=== PATIENT | female | born 2000 | race Caucasian/White ===

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

== ENCOUNTER 2022-06-16 11:47 | Emergency (ER) | payer BC, OTHER ==
[~2022-06-16] VITALS: Ht 157.5 cm; Wt 86.4 kg
[2022-06-16 12:27] LABS: BASO % 0.2 % (0.0-1.0); EOS # 0.1 10^3/uL (0.0-0.5); EOS % 0.4 % (0.0-3.0); HEMATOCRIT 49.1 % (36.0-47.0); HEMOGLOBIN 15.4 g/dl (12.0-15.5); LYMPH # 0.7 10^3/uL (1.5-5.0); LYMPH % 4.3 % (24.0-44.0); MEAN CORPUSCULAR HEMOGLOBIN 25.8 pg (27.0-33.0); MEAN CORPUSCULAR HGB CONC 31.4 g/dl (32.0-36.5); MEAN CORPUSCULAR VOLUME 82.1 fl (80.0-96.0); MONO # 0.8 10^3/uL (0.0-0.8); MONO % 4.5 % (2.0-8.0); NEUTROPHILS # 15.2 10^3/uL (1.5-8.5); NEUTROPHILS % 90.3 % (36.0-66.0); PLATELET COUNT, AUTOMATED 366 10^3/uL (150-450); RED BLOOD COUNT 5.98 10^6/uL (4.00-5.40); WHITE BLOOD COUNT 16.9 10^3/uL (4.0-10.0)
[2022-06-16 12:52] LABS: LIPASE 23 U/L (12-53)
[2022-06-16 12:54] LABS: ALBUMIN 4.2 G/DL (3.2-5.2); ALKALINE PHOSPHATASE 120 U/L (46-116); ALT/SGPT 20 U/L (7.0-40); AST/SGOT 20 U/L (<34); BILIRUBIN,DIRECT 0.3 MG/DL (<0.4); BILIRUBIN,TOTAL 0.8 MG/DL (0.3-1.2); BLOOD UREA NITROGEN 15 MG/DL (9-23); CALCIUM LEVEL 9.7 MG/DL (8.5-10.1); CARBON DIOXIDE LEVEL 30 MMOL/L (20-31); CHLORIDE LEVEL 104 MMOL/L (98-107); CREATININE FOR GFR 0.59 MG/DL (0.55-1.30); GLUCOSE, FASTING 114 MG/DL (60-100); POTASSIUM SERUM 4.3 MMOL/L (3.5-5.1); SODIUM LEVEL 141 MMOL/L (136-145); TOTAL PROTEIN 7.6 G/DL (5.7-8.2)
[2022-06-16 12:58] LABS: HCG, SERUM QUALITATIVE NEGATIVE (NEGATIVE)
[2022-06-16] MEDS ORDERED: ONDANSETRON 4MG 2ML VIAL IV ONE (13:20)
[2022-06-16] MEDS ORDERED: NS 1,000 ML IV ONE (13:20)
[2022-06-16] MEDS ORDERED: ISOVUE-370 76% 100ML VIAL As Ordered ONE (13:22)
[2022-06-16] MEDS ORDERED: PROM50TA4 PO (14:21)
[2022-06-16 14:42] VITALS: BP 133/68
== END 2022-06-16 14:59 | disposition home or self-care (01) ==
LOC: M ED 11:47
DX: R11.10 Vomiting, unspecified (principal); R19.7 Diarrhea, unspecified; R10.9 Unspecified abdominal pain
CPT/HCPCS: 74177; 80048; 80076; 81001; 83605; 83690; 84703; 85025; 87086; 96374; 99284; J2405

== ENCOUNTER 2024-12-26 10:52 | Emergency (ER) | payer BC, OTHER ==
[~2024-12-26] VITALS: Ht 157.5 cm; Wt 105.1 kg
[~2024-12-26 10:52] MED LIST changes: +PROM50TA4 PO
[2024-12-26 10:56] VITALS: BP 130/76; TEMP 97.7; O2SAT 98
[2024-12-26] MEDS ORDERED: HYDR1CRE30 TOP (11:29)
[2024-12-26] MEDS ORDERED: PRED10TA2 PO (15:48)
== END 2024-12-26 11:40 | disposition home or self-care (01) ==
LOC: M ED 10:52
DX: R21 Rash and other nonspecific skin eruption (principal); Z79.52 Long term (current) use of systemic steroids; Z79.899 Other long term (current) drug therapy; Z79.810 Long term (current) use of selective estrogen receptor modulators (SERMs)

== ENCOUNTER 2025-02-22 11:07 | Emergency (ER) | payer BC, MEDICAID ==
[~2025-02-22] VITALS: Ht 157.5 cm; Wt 102.2 kg
[~2025-02-22 11:07] MED LIST changes: +HYDR1CRE30 TOP; +PRED10TA2 PO
[2025-02-22] MEDS ORDERED: ACET-683 PO (11:50)
[2025-02-22 15:00] VITALS: BP 116/80; TEMP 98.4; O2SAT 99
== END 2025-02-22 15:03 | disposition home or self-care (01) ==
LOC: M ED 11:07
DX: R05.9 Cough, unspecified (principal); B97.4 Respiratory syncytial virus as the cause of diseases classified elsewhere; Z79.1 Long term (current) use of non-steroidal anti-inflammatories (NSAID); Z79.52 Long term (current) use of systemic steroids; Z79.899 Other long term (current) drug therapy; Z79.810 Long term (current) use of selective estrogen receptor modulators (SERMs)

== ENCOUNTER → 2025-04-15 | Outpatient (REF) ==
[~2025-04-15] MED LIST changes: +ACET-683 PO
== END ==
LOC: M EMP 08:25
PROVIDERS: ATTEND Family Medicine
DX: Z01.89 Encounter for other specified special examinations (principal)